=== PATIENT | female | born 1970 | race Caucasian/White ===

== ENCOUNTER 2020-08-15 21:30 | Inpatient (IN) | payer BC, MEDICARE ==
[~2020-08-15] VITALS: Ht 154.9 cm; Wt 66.1 kg
[~2020-08-15 21:30] MED LIST: ALBU8.5H6 INH; BYSTOLIC20 MG PO; HYDR-2769 PO; PREG-9 PO; ZOLP10TA PO
--- NOTE | 2020-08-15 21:30 | NUR ---
Admit from [facility] ER via EMS to [facility] room 256. A/O x 4 on arrival to floor. Talkative. Persistent Cough. O2Sat low 80% on 5L NC. Placed on Bi-Pap. 01/15, rate 12, 50% FiO2. Orientated to room and call light. Reviewed POC to include BiPap and Pending COVID testing. Verbalized understanding. Resting in bed. Playing games on cell phone. Tolerating BiPap at this time. Call light at hand.
[2020-08-15 21:45] VITALS: BP 109/57
[2020-08-15] MEDS ORDERED: OXYC1TAB22 PO (22:40)
[2020-08-15] MEDS ORDERED: VENTOLIN HFA18 GM INH (22:41)
[2020-08-15] MEDS ORDERED: VENL75CA6 PO (22:42)
[2020-08-15] MEDS ORDERED: GABA300C18 PO (22:43)
[2020-08-15] MEDS ORDERED: ASPI-630 PO (22:43)
[2020-08-15] MEDS ORDERED: ONDA-84 PO (22:44)
[2020-08-15] MEDS ORDERED: AMLO2.5T5 PO (22:45)
[2020-08-15] MEDS ORDERED: PREG-9 PO (22:45)
[2020-08-15] MEDS ORDERED: MAGNESIUM CITRATE 296 ML SOLUTION. PO PRN (22:45)
[2020-08-15] MEDS ORDERED: OMEP40CA7 PO (22:46)
[2020-08-15] MEDS ORDERED: [UNRECOGNIZED DRUG - OTHER] PO (22:49)
[2020-08-15] MEDS ORDERED: SPIR25TA5 PO (22:49)
[2020-08-15] MEDS ORDERED: ZINC50TA39 PO (22:50)
[2020-08-15] MEDS ORDERED: MAGN296S68 PO (22:51)
[2020-08-15] MEDS ORDERED: FERR-36 PO (22:52)
[2020-08-15] MEDS ORDERED: ATOR80TA72 PO (22:52)
[2020-08-15] MEDS ORDERED: VITAMIN D PO (22:54)
[2020-08-15] MEDS ORDERED: B12 PO (22:55)
[2020-08-15] MEDS ORDERED: ALBUTEROL SULFATE 2.5 MG/3 ML NEBU. NEB PRN (23:15)
[2020-08-15] MEDS: PREGABALIN 75 MG CAPSULE PO SCH (23:20)
[2020-08-15] MEDS: GABAPENTIN 300 MG CAPSULE. PO SCH (23:20)
[2020-08-15] MEDS: ONDANSETRON ODT 4 MG TAB.RAPDIS. PO PRN (23:21)
[2020-08-15] MEDS: oxyCODONE/APAP 10/325 1 TAB TABLET PO PRN (23:21)
[2020-08-15] MEDS: ATORVASTATIN CALCIUM 40 MG TABLET. PO SCH (23:45)
[2020-08-16] VITALS (17 sets, daily range): BP systolic 91–120; BP diastolic 51–78
[2020-08-16 01:07] LABS: BASE EXCESS COOX -2 mmol/L (-3-3); HCO3 COOX 24 mmol/L (21-28); PCO2 COOX 48 mmHg (35-46); PO2 COOX 69 mmHg (75-108); SAT O2 COOX 92 % (92-99)
[2020-08-16 01:09] LABS: METHEMOGLOBIN 0.3 % (0.0-1.9)
[2020-08-16] MEDS: BENZONATATE 100 MG CAPSULE. PO PRN ×3 (01:37→11:00)
--- NOTE | 2020-08-16 08:15 | NUR ---
ASSESSMENT COMPLETED AT THIS TIME, PATIENT ALERT AND VERBALLY RESPONSIVE, VERY TALKATIVE WITH C/O MILD HEADACHE, PATIENTS VITALS STABLE EXCEPT B/P 90S/60S AND 02 SATS DROP TO HIGH 80S DISPITE NON REBREATHER ON AT 15 LITERS, BI PAP REMOVED PER PATIENT REQUEST, PATIENT STATES "IT'S MAKING ME FEEL CLOSED IN". PATIENT SITTING AT THE BEDSIDE AT THIS TIME AND ENCOURAGED PER THIS CRIMINAL INVESTIGATOR CUSTOMS TO SPEAK ONLY WHEN NECESSARY TO CONSERVE HER ENERGY FOR BREATHING, PATIENT INFORMED THIS CRIMINAL INVESTIGATOR CUSTOMS THAT SHE NEEDED TO CONTINUE TO TALK AND THAT'S THE ONLY WAY TO LET ME KNOW WHAT'S WRONG WITH HER. DR. BANDA ENTERS THE ROOM AT THIS TIME AND BEGINS TO SPEAK WITH THE PATIENT.
[2020-08-16] MEDS: VENLAFAXINE XR 37.5 MG CAP.ER.24H. PO SCH (09:11)
[2020-08-16] MEDS: ZINC SULFATE 220 MG CAPSULE. PO SCH (09:12)
[2020-08-16] MEDS: FERROUS SULFATE 325 MG TABLET. PO SCH (09:12)
[2020-08-16] MEDS: PREGABALIN 75 MG CAPSULE PO SCH ×2 (09:12→21:41)
[2020-08-16] MEDS: SPIRONOLACTONE 25 MG TABLET PO SCH (09:12)
[2020-08-16] MEDS: GABAPENTIN 300 MG CAPSULE. PO SCH ×2 (09:12→21:41)
[2020-08-16] MEDS: PANTOPRAZOLE 40 MG TABLET.DR. PO SCH (09:12)
[2020-08-16] MEDS: ONDANSETRON ODT 4 MG TAB.RAPDIS. PO PRN (09:17)
[2020-08-16] MEDS: oxyCODONE/APAP 10/325 1 TAB TABLET PO PRN (09:18)
--- NOTE | 2020-08-16 09:39 | PN ---
DATE: 08/16/2020 SUBJECTIVE: The patient is resting, slightly propped up in bed, continued to complain of cough, shortness of breath, although her chest tightness and wheezing is much less. She was treated with IV ceftriaxone and Zithromax as well as steroids and was on 100% nonrebreather mask, maintaining her oxygen saturation around 90%. PHYSICAL EXAMINATION: GENERAL: When I examined her this morning, she was pale, but not jaundiced, cyanosed or thyromegaly. No jugular venous distention. No lower limb edema. VITAL SIGNS: Her heart rate was 112, blood pressure was 91/56, temperature was 97, respiratory rate was 24 and oxygen saturation was 90% on 15 liters of oxygen by nonrebreather mask. HEAD, EYES, EARS, NOSE, AND THROAT: Normocephalic, atraumatic. NECK: Supple. HEART: Showed normal first and second heart sounds. No gallop, rub or murmur. CHEST: Clear to auscultation. No rhonchi. She has crepitation. ABDOMEN: Soft, nontender. NEUROLOGIC: She is grossly intact. LABORATORY DATA: Her blood gases this morning showed a pH of 7.32, pO2 of 48, pCO2 of 69, bicarbonate was 24 and oxygen saturation was 91% on FiO2 of 50%. ASSESSMENT: In summary, this is a 49-year-old female patient who was admitted with acute on chronic hypoxic respiratory failure, probably community-acquired pneumonia on top of chronic pulmonary fibrosis, probably radiation induced. She has also chemotherapy-induced congestive heart failure. Other medical problems include coronary artery disease, status post myocardial infarction, fibromyalgia, osteoporosis and chronic obstructive pulmonary disease, although she has never smoked herself. PLAN: My plan is to continue with IV antibiotics, steroids and inhalers. I have consulted the resin coater as well as the bucket hooker to assist with her management. LUX DR: Giuseppe TID: [id number]
[2020-08-16] MEDS ORDERED: methylPREDNISolone SOD SUCC PF 40 MG/ML VIAL. IV SCH ×2 (09:45→14:00)
--- NOTE | 2020-08-16 10:20 | NUR ---
PATIENT LEAVES THE UNIT PER W/C AND ACCOMPANIED BY THIS BOND ANALYST EN ROUTE TO THE ICU ROOM 103, PATIENT MORE CALM AT THIS TIME AEB RESPIRATIONS EVEN, 02 SATS 91 AT THIS TIME AND PATIENT INFORMS THIS BOND ANALYST THAT THE PAIN MEDS THAT I GAVE HER ARE STARTING TO WORK. REPORT CALLED TO NURSE IN ICE, QUESTIONS AND CONCERNS ANSWERED, ALL PERSONAL BELONGINGS SENT WITH PATIENT INCLUDING PURSE, CELL PHONE, CELL PHONE [employer] AND BAGS OF PERSONAL ITEMS.
[2020-08-16] MEDS: ASPIRIN CHEWABLE 81 MG TABLET. PO SCH (11:00)
[2020-08-16] MEDS ORDERED: FUROSEMIDE 20 MG/2 ML VIAL. IVP ONE (11:00)
[2020-08-16] MEDS: AZITHROMYCIN 250 MG TABLET. PO SCH (11:00)
--- NOTE | 2020-08-16 11:02 | PDOC2 ---
ANSELMO HAWKINS AUTHORS MOTIVATIONAL 08/16/20 1102: CARDIAC CONSULT DATE OF CONSULT Date of Consult DATE: 08/16/20 TIME: 12:01 REASON FOR CONSULT Reason for Consult: Chemo induced CHF REFERRING PHYSICIAN Referring Physician: Dr. Parada SOURCE Source: Chart review HISTORY OF PRESENT ILLNESS HISTORY OF PRESENT ILLNESS This is a 49 yo female who presented to [facility] secondary to progressive shortness of breath and acute hypoxic respiratory failure. Patient unable to provide HPI as she is on mild sedation due to increased agitation this morning. Per chart review, patient experienced wheezing and chest tightness. No reports of dizziness, diaphoresis, or nausea/vomiting. PAST MEDICAL HISTORY Cardiovascular: CHF Pulmonary: Other (ARDS) CENTRAL NERVOUS SYSTEM: Periperal neuropathy GI: GERD Heme/Onc: Anemia NOS, Cancer (breast s/p stem cell transplant) Psych: Anxiety, Depression PAST SURGICAL HISTORY Past Surgical History: Other (left mastectomy ) FAMILY HISTORY Family History: Family History Unknown SOCIAL HISTORY Smoke: No ALCOHOL: none Drugs: None CURRENT MEDICATIONS CURRENT MEDICATIONS Current Medications Medications (Trade) Dose Ordered Sig/Dilma Route PRN Reason Start Time Stop Time Status Last Admin Dose Admin Ferrous Sulfate (Feosol) 325 mg DAILY PO 08/16/20 09:00 08/16/20 09:12 Gabapentin (Neurontin) 300 mg BID PO 08/15/20 23:30 08/16/20 09:12 Oxycodone/ Acetaminophen (Percocet 10/325) 2 tab PRN Q6HRS PRN PO SEVERE PAIN 7-10 08/15/20 22:45 08/16/20 09:18 Pregabalin (Lyrica) 75 mg BID PO 08/16/20 00:00 08/16/20 09:12 Spironolactone (Aldactone) 25 mg DAILY PO 08/16/20 09:00 08/16/20 09:12 Albuterol Sulfate (Ventolin Neb Soln) 2.5 mg PRN Q4HRS PRN NEB SHORTNESS OF BREATH 08/15/20 23:15 08/16/20 08:08 Atorvastatin Calcium (Lipitor) 80 mg QHS PO 08/16/20 00:00 08/15/20 23:45 Pantoprazole Sodium (Protonix) 40 mg DAILYAC PO 08/16/20 07:30 08/16/20 09:12 Ondansetron HCl (Zofran Odt) 8 mg PRN Q8HRS PRN PO NAUSEA/VOMITING 08/15/20 23:15 08/16/20 09:17 Venlafaxine HCl (Effexor Xr) 75 mg DAILY PO 08/16/20 09:00 08/16/20 09:11 Zinc Sulfate (Orazinc) 220 mg DAILY PO 08/16/20 09:00 08/16/20 09:12 Benzonatate (Tessalon Perle) 100 mg PRN TID PRN PO COUGH 08/16/20 00:15 08/16/20 06:08 ALLERGIES ALLERGIES: Coded Allergies: Penicillins (Verified Allergy, Severe, Swelling, 08/16/20) Can tolerate meropenem and ceftaroline erythromycin base (Verified Allergy, Severe, Swelling, 08/16/20) Has tolerated azithromycin ibuprofen (Verified Allergy, Intermediate, Nausea and Vomiting, 08/04/13) vancomycin (Verified Allergy, Intermediate, Rash, 08/04/13) Red klaudia syndrome ROS Review of System 14 point ROS conducted with pertinent positives noted above in hPI PHYSICAL EXAM General: No acute distress, Other (sleeping ) Lungs: Other (coarse throughout ) Heart: Regular rate (SR. distant heart tones ) Abdomen: Soft Extremities: No edema, Normal pulses Skin: No significant lesion Neuro: Other Psych/Mental Status: Other (mild sedation) MUSCULOSKELETAL: No deformity VITALS/I&O VITALS/I&O: Vital Signs Date Time Temp Pulse Resp B/P (MAP) Pulse Ox O2 Delivery O2 Flow Rate FiO2 08/16/20 09:18 21 90 NonRebreather Mask 08/16/20 09:00 112 91/56 08/16/20 08:09 15.0 08/16/20 07:00 97.0 97.0 I & O 08/15/20 08/15/20 08/16/20 15:00 23:00 07:00 Intake Total 500 ml Output Total 150 ml Balance 350 ml LABS Lab: Laboratory Tests Test 08/16/20 00:45 O2 Saturation 92 % (92-99) Arterial Blood pH 7.32 (7.35-7.45) L Arterial Blood pCO2 at Patient Temp 48 mmHg (35-46) H Arterial Blood pO2 at Patient Temp 69 mmHg (75-108) L Arterial Blood HCO3 24 mmol/L (21-28) Arterial Blood Base Excess -2 mmol/L (-3-3) Emmanuel Test Na Oxyhemoglobin 91.0 % Methemoglobin 0.3 % (0.0-1.9) Carbon Monoxide, Quantitative 0.2 % (0.0-1.9) FiO2 50 ASSESSMENT/PLAN ASSESSMENT/PLAN 1. Acute on chronic respiratory with ARDS, possible PNA, and mild acute on chronic probable diastolic CHF 2. Leukocytosis, low-grade fevers. 3. H/o breast CA s/p left mastectomy and chemo/radiation therapy. s/p stem cell transplant 4. PUI; COVID negative at [facility] 5. Anxiety; requiring mild sedation Recommendations Mild diuresis Echo to assess LV systolic function Ongoing lung optimization BiPAP PRN Supportive care CLARA FATIMA MD 08/16/201912: CARDIAC CONSULT ASSESSMENT/PLAN ASSESSMENT/PLAN Patient seen and examined. Agree with ZIG ZAG SPRING MACHINE OPERATOR's assessment and plan. Acute resp failure probably secondary to combination of acute on chr diast HF and pneumonia. Covid negative Continue diuresis and check 2D echo to assess LVF Ischemic evaluation could be considered as outpatient Thank you for your consultation ANSELMO HAWKINS APRN Aug 16, 2020 11:02 CLARA FATIMA MD Aug 16, 2020 19:13
[2020-08-16] MEDS: cefTRIAXone IV Push 1 GM VIAL. IVP SCH (11:07)
[2020-08-16] MEDS ORDERED: DEXMEDETOMIDINE 400 MCG in IV NORMAL SALINE 100ML 96 ML IV PRN (11:30)
[2020-08-16] MEDS ORDERED: IV NORMAL SALINE 500ML BAG 500 ML IV PRN ×2 (11:30)
[2020-08-16] MEDS ORDERED: ATROPINE 0.5 MG/5 ML DISP.SYRINGE. IV PRN ×2 (11:30)
--- NOTE | 2020-08-16 11:41 | CONS ---
DATE OF CONSULTATION: 08/16/2020 PULMONARY CONSULTATION ATTENDING PHYSICIAN: Wilbert Parada MD REASON FOR CONSULTATION: Respiratory failure, severe hypoxia, ARDS. HISTORY OF PRESENT ILLNESS: The patient is a 49-year-old female who has past medical history of breast cancer, status post chemotherapy and radiation long time ago. She has a history of stem cell transplant. The patient has a history of acute lung injury and acute respiratory distress syndrome when she was last seen by our service in 2013. The patient at that time did respond to steroids and was subsequently discharged home. We have not followed her since then. The patient states that she remains on oxygen at 2 liters. She is a lifetime nonsmoker. The patient has not received any chemo for several years. She was brought into the hospital with progressive dyspnea and acute hypoxic respiratory failure. Her oxygen requirement has significantly increased. Now, she is requiring 100% nonrebreather mask. She is not in any imminent respiratory distress. She has a cough which is nonproductive. No fever, no chills, no chest pains. No nausea, vomiting, or diarrhea. She relatively keep herself isolated. She has no environmental exposures. She is all updated on her COVID vaccination in April. CT chest was performed along with chest x-ray and I have reviewed that in detail. The patient has extensive bilateral alveolar and interstitial infiltrates without any pleural effusion. There was no evidence of pulmonary embolism. I have been asked to see her for further evaluation and we are transferring the patient to the ICU. PAST MEDICAL HISTORY: Significant for history of breast cancer, status post stem cell transplant. History of immune suppression with a past history of chemo and radiation. History of prior chest tube wound. History of acute lung injury and ARDS in 2013. PAST SURGICAL HISTORY: None recent. ALLERGIES: ERYTHROMYCIN, PENICILLIN, IBUPROFEN, AND VANCOMYCIN. FAMILY HISTORY: Noncontributory. SOCIAL HISTORY: Nonsmoker. REVIEW OF SYSTEMS: A 12-point system obtained. Pertinent positives discussed in my presence illness, otherwise noncontributory. All systems that were negative were reviewed as well. PHYSICAL EXAMINATION: VITAL SIGNS: Reviewed. She is on 100% nonrebreather mask. His saturation in the high 90s. NECK: Supple. LUNGS: With diminished breath sounds posteriorly. CARDIOVASCULAR: With a regular rate. ABDOMEN: Soft, nontender. EXTREMITIES: With no pitting edema. LABORATORY DATA: All reviewed. Her CT chest findings as well as chest x-ray findings are discussed in my history of present illness. IMPRESSION: 1. Acute hypoxic respiratory failure secondary to ARDS and acute lung injury with unknown etiology. She has not received any chemo recently. The possibility of lymphangitic spread seems unlikely. The possibility of interstitial pneumonitis vs acute ILD would also be a consideration. fully vaccinated with COVID, TEST NEGATIVE. 2. No significant history of tobacco use. 3. History of breast cancer, status post stem cell transplant many years ago. 4. Status post chemo and radiation many years ago. No recent chemo. RECOMMENDATIONS: 1. We will continue present oxygen at 100% FIO2. We will transfer the patient to the ICU and use Vapotherm if needed. 2. High dose steroids. 3. Trial of Lasix. 4. Obtain echocardiogram. 5. We will obtain old records. 6. Discussed with Dr. Parada in detail. 7. Continue empiric antibiotics for now. 8. Further recommendations to follow. The patient is a full code. Discussed with RN and Dr. Parada. cct [address]: [place] TID: [id number] MTDD
[2020-08-16] MEDS ORDERED: ZIPRASIDONE IM 20 MG VIAL. IM ONE (12:00)
--- NOTE | 2020-08-16 12:00 | NUR ---
Patient transferred from CVC to ICU via . Patient was settled in room, monitor and oxygen supply applied. She was noted to be tachypneic and labored breathing on NRB mask with increase anxiety, restless, and irritable. She verbalized that she would like to "leave because everyone seems to be telling me my oxygen level is dropping and when it's my time then it's my time". Patient took off oxygen supply multiple times indication it is hard to breath with the mask. Patient transitioned to venti mask which she continued to take off too. Patient later disconnected self from monitor and oxygen supply to use toilet without assistance and against staff recommendation to remain in bed. She was helped back into bed. Her SPO2 was noted to be reading in the 50s and labored breathing. Precedex and Geodon given per MD order. Patient currently on Vapotherm 40L at 100% FIO2 sleeping.
--- NOTE | 2020-08-16 12:00 | HP ---
ADMIT DATE: 08/15/2020 HISTORY OF PRESENT ILLNESS: The patient is a 49-year-old female patient who presented to the Emergency Room of [facility] with a complaint of cough, shortness of breath that has been going on for the last 3-4 days. The cough is mostly dry. She does have some chest pain when she takes a deep breath that seems to be pleuritic in nature, mostly on the left side. She is normally on 2 liters of oxygen at home, but she has increased her oxygen to 5 liters and despite this, she continued to have shortness of breath and chest tightness and wheezing. She was evaluated in the Emergency Room of [facility] and has had lab work and imaging studies. Her lab work showed she has leukocytosis with a white cell count of 14,000. Her blood gases showed a pH of 7.30, pCO2 of 48, pO2 of 74, bicarbonate 24 and oxygen saturation was 93% on FiO2 of 36%. Her D-dimer was slightly high at 1.02. Her chemistry showed that her beta natriuretic peptide was high at 1628, otherwise the chemistry is unremarkable. Urinalysis was also unremarkable. Given the elevated D-dimer, she underwent CT angio of the chest, which showed there is no evidence of pulmonary emboli identified within the main lobar or segmental pulmonary arteries; however, she has extensive patchy bilateral airspace disease, may represent infectious or inflammatory process versus edema. The patient was treated with IV antibiotic in the form of ceftriaxone as well as azithromycin, was given also breathing treatment and steroids and given that her requirement of oxygen has increased and was requiring BiPAP machine, a decision was made to transfer her to [facility] for further evaluation and treatment. PAST MEDICAL HISTORY: Significant for breast cancer diagnosed about 22 years ago. She underwent left mastectomy with recurrence twice treated with high dose radiation and chemotherapy. She was diagnosed also with congestive heart failure that was chemotherapy-induced. She apparently has had hyperlipidemia, coronary artery disease status post myocardial infarction in 2019. She was treated also for necrotizing fasciitis involving her left hand and as she was stage 4, breast cancer was treated with stem cell transplant. 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 PAST SURGICAL HISTORY: Significant for left side mastectomy with a recurrence that was treated surgically as well as with chemotherapy and radiation, tonsillectomy, multiple cysts removed from her neck and left foot. ALLERGIES: SHE IS ALLERGIC TO PENICILLIN, VANCOMYCIN, ERYTHROMYCIN, CODEINE, AND IBUPROFEN. MEDICATIONS: She is currently on the following medications: She is on albuterol sulfate 2 puffs every 4 hours, ferrous sulfate 325 mg once a day, atorvastatin calcium 80 mg at bedtime, amlodipine 2.5 mg once a day, spironolactone 25 mg daily, aspirin 81 mg once a day, oxycodone/APAP 10/325 two tablets every 6 hours, gabapentin 300 mg twice a day, pregabalin 75 mg twice a day. She is on venlafaxine 75 mg daily, zinc sulfate 50 mg once a day, magnesium citrate 1 bottle daily. She is also on ondansetron 4 mg every 8 hours, omeprazole 40 mg daily. FAMILY HISTORY: She has 1 sister older and has heart disease. Her brother is younger and has severe bronchial asthma. Her father at age of 33 because of motor vehicle accident and mother at age of 54 because of metastatic cancer, the primary of which is not known. SOCIAL HISTORY: She is , has 2 sons. She never smoked, does not drink alcohol or recreational drugs. She is on disability. REVIEW OF SYSTEMS: The patient denied any blurring of vision, cataracts, glaucoma or macular degeneration. Denied any earache, tinnitus or sensory deafness. Denied nosebleed, stuffy nose or postnasal drip. Denied any sore throat, sore tongue, toothache, hoarseness of voice or difficulty swallowing. Denied any nausea, vomiting, diarrhea or constipation. Denied any dysuria, frequency, hematuria. Did complain of a cough which is mostly dry, shortness of breath as well as orthopnea, and paroxysmal nocturnal dyspnea. PHYSICAL EXAMINATION: GENERAL: On arrival to the Emergency Room, the patient was pale, somewhat tachypneic, but not cyanosed. No lymphadenopathy, no thyromegaly, no jugular venous distention. No lower limb edema. VITAL SIGNS: Her heart rate was 118, blood pressure was 119/83, temperature was 99.6, respiratory rate was 25 and oxygen saturation was 78% on room air, has risen to 91% on 3 liters of oxygen. HEAD, EYES, EARS, NOSE, AND THROAT: Normocephalic, atraumatic. NECK: Supple. HEART: Normal first and second heart sounds, no gallop, rub or murmur. CHEST: Shows central trachea, equal bilateral chest expansion, air entry has extensive bilateral scattered rhonchi as well as crepitation. ABDOMEN: Slightly distended, soft, nontender, no guarding or rigidity. No organomegaly. All hernial orifices are intact. Bowel sounds normal. NEUROLOGIC: She is awake, alert, responding appropriately. All cranial nerves are intact. She moves extremities without difficulty. LABORATORY DATA: Her lab work on arrival to the Emergency Room showed a white cell count 14,300, hemoglobin 11, hematocrit 30, MCV 112, and a platelet count of 207,000 with normal manual differential. Her blood gases showed a pH of 7.30, pCO2 of 48, pO2 of 74, bicarbonate 24 and oxygen saturation was 93% on FiO2 of 56%. Her D-dimer was 1.02. Her chemistry showed a serum sodium 144, potassium 3.5, chloride 107, bicarbonate 25, anion gap of 12, BUN 7, creatinine 0.8. Estimated GFR was 77 mL per minute. Her glucose was 95. Lactic acid was only 1.3. Her calcium was 8.1. Total bilirubin and ALT were normal. AST and alkaline phosphatase slightly elevated. Her C-reactive protein was 270 mg per liter. Beta natriuretic peptide was 1628. Total protein was 6.6, albumin was 2.9. Urinalysis showed the urine was yellow, clear with a pH of 5.5, specific gravity of 1.010. The urine was negative for protein, glucose, ketones. There was moderate amount of blood, negative for nitrite and leukocyte esterase. There are few rbc's, no wbc's and no bacteria. Her chest x-ray showed the patient has diffuse patchy airspace disease/edema in the bilateral lungs, suspicious for atypical or viral pneumonia, correlate clinically. Given her elevated D-dimer and hypoxia, she underwent a CT angio of the chest, which showed that no pulmonary embolus identified within the main lobar or segmental pulmonary arteries. She has extensive patchy bilateral airspace disease that may represent infectious inflammatory process versus edema. ASSESSMENT AND PLAN: The patient was treated with IV steroids and inhalers, started on IV antibiotic in the form of IV ceftriaxone and azithromycin. Apparently, her oxygen requirement has worsened while she is in the Emergency Room and she was started on BiPAP machine and eventually, she was transferred to [facility] to continue with steroids, antibiotics and BiPAP machine, consult the template reproduction technician and perhaps the patient relations manager also. CODI/FROY/REVA DR: Giuseppe TID: [id number]
[2020-08-16] MEDS: DEXMEDETOMIDINE 400 MCG in IV NORMAL SALINE 100ML 96 ML IV PRN ×3 (12:20→18:38)
[2020-08-16] MEDS: IPRATRPIUM/ALBUTEROL 0.5/2.5MG 3 ML NEBU. NEB SCH ×3 (12:27→20:00)
--- NOTE | 2020-08-16 12:55 | NUR ---
Patient refusing Bipap, despite low oxygen saturations. She does not even want it in the room on Standby.
[2020-08-16] MEDS: methylPREDNISolone SOD SUCC PF 40 MG/ML VIAL. IV SCH ×2 (15:15→21:42)
--- NOTE | 2020-08-16 15:21 | NUR ---
SS following for discharge planning. SS reviewed pt chart and discussed with pt RN. Pt is from home and is currently on Vapotherm. Pt on Precedex and was given Geodon today. Pt on IV Rocephin and PO Azithromycin. Pt on IV Steroids. Not stable. SS will continue to follow for discharge planning.
[2020-08-16] MEDS: STERILE WATER for RESP 1,000 ML BAG. INH PRN (18:19)
[2020-08-16] MEDS ORDERED: HALOPERIDOL LACTATE 5 MG/ML VIAL. IVP PRN (19:30)
--- NOTE | 2020-08-16 19:31 | CARD ---
MR#: [id number] Date of Study: 08/16/2020 Ordering Physician: EUGENE STAPLETON, Referring Physician: EUGENE STAPLETON, Tech: Abby Mgadasamara, [facility] APPROVED REPORT EXAM: Two-dimensional and M-mode echocardiogram with Doppler and color Doppler. Other Information Quality : AverageHR: 97bpm INDICATION Congestive Heart Failure 2D DIMENSIONS RVDd2.5 (2.9-3.5cm)Left Atrium(2D)2.8 (1.6-4.0cm) IVSd0.8 (0.7-1.1cm)Aortic Root(2D)2.9 (2.0-3.7cm) LVDd5.7 (3.9-5.9cm)LVOT Diameter2.0 (1.8-2.4cm) PWd0.8 (0.7-1.1cm)LVDs4.2 (2.5-4.0cm) FS (%) 26.1 %SV80.4 ml LVEF(%)50.6 (>50%) Aortic Valve AoV Peak Matthew.99.3cm/sAoV VTI20.7cm AO Peak GR.3.9mmHgLVOT VTI 14.15cm AO Mean GR.3mmHg Mitral Valve MV E Mtzdcxwt77.1cm/sMV DECEL KRQK989cm MV A Aervgvde92.0cm/sE/A Ratio2.4 TDI Lateral E' P. V9.27cm/sMedial E' P. V8.11cm/s E/Lateral E'9.6E/Medial E'11.0 Tricuspid Valve TR P. Xvgwsmme238zi/sRAP NQEVXIKB1qgXw TR Peak Gr.19kbVwKQPP09ubTj Pulmonary Vein S1 Naahjrjo80.7cm/sS2 Gafkapgb82.44cm/s D2 Hwtippno00.4cm/s LEFT VENTRICLE The Left Ventricle is mildly dilated. There is normal left ventricular wall thickness. The systolic f unction is moderately impaired. EF 40%. Setal motion consistant with conduction abnormality. There is moderate global hypokinesis. Tissue Doppler imaging reveals moderate left ventricular diastolic dysf unction. No left ventricle thrombus noted on this study. There is no ventricular septal defect visual ized. RIGHT VENTRICLE The right ventricle is mild to moderately dilated. There is normal right ventricular wall thickness. The right ventricular systolic function is normal. ATRIA The left atrium is mildly dilated. The right atrium is mildly dilated. The interatrial septum is inta ct with no evidence for an atrial septal defect or patent foramen ovale as noted on 2-D or Doppler im aging. AORTIC VALVE The aortic valve is thickened but opens well. Doppler and Color Flow revealed no significant aortic r egurgitation. There is no significant aortic valvular stenosis. Calculated aortic valve area is 2.12 cm2 with maximum pressure gradient of 6 mmHg and mean pressure gradient of 3 mmHg. MITRAL VALVE The mitral valve is normal in structure and function. There is no evidence of mitral valve prolapse. There is no mitral valve stenosis. Doppler and Color-flow revealed trace to mild mitral regurgitation . TRICUSPID VALVE The tricuspid valve is normal in structure and function. Doppler and Color Flow revealed mild to mode rate tricuspid regurgitation with an estimated PAP of 40 mmHg. There is no tricuspid valve stenosis. PULMONIC VALVE The pulmonic valve is not well visualized. Doppler and Color Flow revealed trace pulmonic valvular re gurgitation. There is no pulmonic valvular stenosis. GREAT VESSELS The aortic root is normal in size. The ascending aorta is normal in size. The IVC is normal in size a nd collapses >50% with inspiration. PERICARDIAL EFFUSION There is a small circumferential pericardial effusion. Critical Notification Critical Value: No <Conclusion> The systolic function is moderately impaired. EF 40%. Setal motion consistant with conduction abnormality. There is moderate global hypokinesis. The right ventricle is mild to moderately dilated. Doppler and Color Flow revealed mild to moderate tricuspid regurgitation with an estimated PAP of 40 mmHg. There is a small circumferential pericardial effusion. Signed by : Nolan Lu, Electronically Approved : 08/16/2020 19:31:08
[2020-08-16] MEDS: ATORVASTATIN CALCIUM 40 MG TABLET. PO SCH (21:42)
[2020-08-17] VITALS (24 sets, daily range): BP systolic 83–118; BP diastolic 52–74
[2020-08-17] MEDS: ONDANSETRON ODT 4 MG TAB.RAPDIS. PO PRN ×2 (03:18→20:13)
[2020-08-17] MEDS: BENZONATATE 100 MG CAPSULE. PO PRN ×2 (03:18→13:58)
[2020-08-17] MEDS: oxyCODONE/APAP 10/325 1 TAB TABLET PO PRN ×2 (03:23→13:58)
[2020-08-17] MEDS: DEXMEDETOMIDINE 400 MCG in IV NORMAL SALINE 100ML 96 ML IV PRN ×3 (03:24→18:10)
[2020-08-17] MEDS: methylPREDNISolone SOD SUCC PF 40 MG/ML VIAL. IV SCH ×3 (06:21→22:07)
[2020-08-17] MEDS: STERILE WATER for RESP 1,000 ML BAG. INH PRN (06:27)
--- NOTE | 2020-08-17 08:06 | PDOC ---
Infectious Disease Note Vital Sign Vital Signs Vital Signs Date Time Temp Pulse Resp B/P (MAP) Pulse Ox O2 Delivery O2 Flow Rate FiO2 08/17/20 07:37 97 VAPOTHERM 40.0 08/17/20 07:00 97.8 79 21 111/66 (81) 97.8 Labs Lab Laboratory Tests Test 08/16/20 16:20 Magnesium Level 2.1 mg/dL (1.8-2.4) Objective Assessment pt seen, consult dictated Plan Plan of Care / LANCE JOHNSTON MD Aug 17, 2020 08:06
[2020-08-17] MEDS: IPRATRPIUM/ALBUTEROL 0.5/2.5MG 3 ML NEBU. NEB SCH ×4 (08:20→20:11)
[2020-08-17 08:27] LABS: CALCIUM 8.8 mg/dL (8.5-10.1); CREATININE 0.7 mg/dL (0.6-1.0); GFR 89.7; POTASSIUM 4.2 mmol/L (3.5-5.1)
--- NOTE | 2020-08-17 08:34 | PDOC ---
BLANKA SILVAELIZABETHJaziel Negrete SCREW MACHINE TOOL SETTER 08/17/20 0834: CARDIO Progress Notes Date and Time Date of Service 08/17/2020 Time of Evaluation 0815 Subjective Subjective: No Chest Pain, No Palpitations, Other (still has some SOA) Vitals Vitals Vital Signs Date Time Temp Pulse Resp B/P (MAP) Pulse Ox O2 Delivery O2 Flow Rate FiO2 08/17/20 08:21 97 VAPOTHERM 40.0 08/17/20 07:00 97.8 79 21 111/66 (81) 97.8 Weight Weight [ ] Input and Output Intake and Output Intake and Output 08/17/20 07:00 Intake Total 420 ml Output Total 420 ml Balance 0 ml Intake Oral 320 ml IV Total 100 ml Output Urine Total 420 ml # Voids 2 Laboratory Labs Laboratory Tests Test 08/16/20 16:20 Magnesium Level 2.1 mg/dL (1.8-2.4) Physical Exam HEENT: Neck Supple W Full Motion Chest: Symmetric LUNGS: Other (diminished, upper wheeze) Heart: RRR (SR) Abdomen: Soft N/T Extremities: No Edema, No Calf Tenderness Neurology: alert, oriented, follow commands Assessment Assessment 1. Acute hypoxic respiratory failure with systolic CHF and ARDS with possible pneumonia presently on vapotherm, pulmonary following 2. Acute on chronic systolic CHF: improving 3. Presumed NICM: EF at 40% 4. Hx of breast CA with prior radiation and chemotherapy and left breast mastectomy 5. Anxiety Recommendations 1. Continue vapotherm, currently on precedex with associated restlessness. Monitor BP trend 2. Continue statin, ASA. Hold any BB with associated BP at low end. DC norvasc. Obtain BMP, continue aldactone. Lasix as warranted. PCXR today 3. Unclear for past ischemic workup will consider as outpt. Supportive care,. Justicifation of Admission Dx: Justifications for Admission: Justification of Admission Dx: Yes CLARA FATIMA MD 08/18/20 0934: CARDIO Progress Notes Assessment Assessment Patient seen and examined 08/17/20. Agree with MACHINE EGG WASHER's assessment and plan. Acute resp failure probably secondary to combination of acute on chr systolic HF and pneumonia. Covid negative 2D echo showed LVEF 40%. Plan ischemic evaluation as outpatient. Continue diuretics. Pulmonary team following. SIXTO SILVA SCREW MACHINE TOOL SETTER Aug 17, 2020 08:34 CLARA FATIMA MD Aug 18, 2020 09:34
[2020-08-17] MEDS: VENLAFAXINE XR 37.5 MG CAP.ER.24H. PO SCH (08:41)
[2020-08-17] MEDS: PREGABALIN 75 MG CAPSULE PO SCH ×2 (08:41→20:13)
[2020-08-17] MEDS: PANTOPRAZOLE 40 MG TABLET.DR. PO SCH (08:41)
[2020-08-17] MEDS: ASPIRIN CHEWABLE 81 MG TABLET. PO SCH (08:41)
[2020-08-17] MEDS: ZINC SULFATE 220 MG CAPSULE. PO SCH (08:41)
[2020-08-17] MEDS: GABAPENTIN 300 MG CAPSULE. PO SCH ×2 (08:42→20:12)
[2020-08-17] MEDS: AZITHROMYCIN 250 MG TABLET. PO SCH (08:42)
[2020-08-17] MEDS: FERROUS SULFATE 325 MG TABLET. PO SCH (08:42)
[2020-08-17] MEDS: SPIRONOLACTONE 25 MG TABLET PO SCH (08:44)
--- NOTE | 2020-08-17 08:55 | PN ---
DATE: 08/17/2020 SUBJECTIVE: The patient is resting, slightly propped up in bed comfortably. She is on Precedex, currently on Vapotherm, maintaining her oxygen saturation at 97% on 40 liters of oxygen and FiO2 of 40%. Nursing staff stated the patient has been extremely agitated yesterday, requiring Geodon and Precedex, although she had apparently eventually an uneventful night. OBJECTIVE: GENERAL: On examining her, she looked pale, but no jaundice, cyanosis or thyromegaly. No jugular venous distention. No limb edema. VITAL SIGNS: Her heart rate was 79, blood pressure is 111/66, temperature 97.8, respiratory rate 21, oxygen saturation was 96% on 40 liters of oxygen on FiO2 of 40% by Vapotherm. HEAD, EYES, EARS, NOSE, AND THROAT: Normocephalic, atraumatic. NECK: Supple. HEART: Normal first and second heart sounds, no gallop or murmur. CHEST: Shows central trachea, equal bilateral expansion, air entry, vesicular breath sounds. No crepitation or rhonchi. ABDOMEN: Slightly distended, soft, nontender. NEUROLOGIC: She was grossly intact. Her intake was 500, output was 150. LABORATORY DATA: Still pending at the time of this dictation. ASSESSMENT: 1. Acute on chronic hypoxic respiratory failure. 2. Community-acquired pneumonia. 3. Questionable she has an acute adult respiratory distress syndrome. 4. Radiation-induced lung injury. 5. Chemotherapy-induced congestive heart failure. 6. Coronary artery disease status post myocardial infarction. 7. Fibromyalgia. 8. Osteoporosis and chronic obstructive pulmonary disease. 9. Premature ovarian failure. PLAN: To continue with IV antibiotic. Continue with steroids and inhalers. I did consult the court collections officer, aeronautical products sales engineer as well as infectious disease specialist. CONSTANCE DR: Giuseppe TID: [id number]
--- NOTE | 2020-08-17 09:26 | CONS ---
DATE OF CONSULTATION: 08/17/2020 REQUESTING PHYSICIAN: Dr. Parada REASON FOR CONSULTATION: Bilateral pulmonary infiltrate. HISTORY OF PRESENT ILLNESS: This is a 49-year-old female who had undergone stem cell transplant for breast cancer 20 years or so ago and she has been in remission since then, presented to the [place] ER with cough and shortness of breath of about 2-3 days origin. The patient said she may probably have had low-grade fever. Denied any nausea, vomiting, diarrhea. Denies any headache, visual symptoms, chest pain, urinary symptoms or bowel symptoms. The patient then was transferred from there to here requiring significantly high oxygen and was found to have bilateral pulmonary infiltrate/ARDS. The patient is on Rocephin and azithromycin and again requiring significant oxygen support, on Vapotherm. PAST MEDICAL HISTORY: Positive for breast cancer status post mastectomy and a stem cell transplant about 20 or so years ago. She has not required anything after that. She did develop congestive heart failure, peripheral neuropathy, does have bipolar disorder and she has had history of MRSA in 2013. SOCIAL HISTORY: Negative for smoking, alcohol, illicit drug use. The patient denies vaping. Denies any sick contact. She says she basically isolates herself. No outdoor activity. No traveling. ALLERGIES: LISTED ALLERGIC TO PENICILLIN AND VANCOMYCIN, she says she has had allergic reaction of course years ago. CURRENT MEDICATIONS: Reviewed. REVIEW OF SYSTEMS: As per HPI. All other systems reviewed are negative. PHYSICAL EXAMINATION: GENERAL: Alert, oriented female, not in distress. VITAL SIGNS: Temperature 97.8, pulse 79, respirations 21, blood pressure 111/66. HEENT: Both pupils are round and reacting. No conjunctival lesion. No lesion in the mouth. NECK: Supple, no JVP, no lymphadenopathy. LUNGS: Clear. HEART: S1, S2 regular. ABDOMEN: Soft, nontender, no organomegaly. EXTREMITIES: No edema, cyanosis. SKIN: Unremarkable. NEUROLOGIC: The patient is alert, awake, and appropriate. No focal neurologic deficit. LABORATORY AND DIAGNOSTIC DATA: White count was 14,000 at [place] before transfer, has not been done here yet. Blood culture done there is unremarkable. CT of the chest done which showed ARDS. IMPRESSION: 1. Hypoxic respiratory failure with acute respiratory distress syndrome, etiology of acute respiratory distress syndrome is unclear. Her COVID PCR was negative there. 2. Leukocytosis. 3. History of breast cancer, status post stem cell transplant 20+ years ago. 4. Congestive heart failure. RECOMMENDATIONS: Continue Rocephin and azithromycin for the time being. We will try to inquire if upper respiratory viral panel can be done. We also will get a procalcitonin level and continue to follow. Thank you very much, Dr. Parada for giving me opportunity to participate in this patient's care. CHEYENNE/JOANNE DR: Tiffanie TID: [id number]
[2020-08-17] MEDS: cefTRIAXone IV Push 1 GM VIAL. IVP SCH (10:17)
--- NOTE | 2020-08-17 10:52 | RAD ---
XR CHEST 1V History: Reason: chf / Spl. Instructions: / History: Comparison: August 12, 2013. August 15, 2020 Findings: Diffuse interstitial and alveolar opacities. Small left pleural effusion. Enlarged cardiac size. No p neumothorax. Impression: 1. Diffuse interstitial and alveolar opacities, increased compared to prior. 2. Small left pleural effusion. 3. Enlarged cardiac size, unchanged. Electronically signed by: Quintin Bowden DO (08/17/2020 10:50 AM) [id number]
[2020-08-17] MEDS ORDERED: FUROSEMIDE 40 MG/4 ML VIAL. IVP ONE ×2 (11:15→11:45)
--- NOTE | 2020-08-17 11:34 | PDOC ---
PULMONARY PROGRESS NOTES DATE: 08/17/20 TIME: 11:32 Subjective Patient currently on Vapotherm at 40 L flow and 90% FiO2. Feels better and denies any increased shortness of breath. Vitals Vital Signs Date Time Temp Pulse Resp B/P (MAP) Pulse Ox O2 Delivery O2 Flow Rate FiO2 08/17/20 11:22 82 22 109/67 (81) 100 vapotherm 40.0 08/17/20 07:00 97.8 97.8 General: Alert, Oriented X4 Lungs: Clear (Anteriorly) Cardiovascular: S1, S2, Other Abdomen: Soft, Non-tender Extremities: No Edema Skin: Warm Labs Laboratory Tests Test 08/16/20 00:45 08/16/20 16:20 08/17/20 08:10 O2 Saturation 92 % (92-99) Arterial Blood pH 7.32 (7.35-7.45) Arterial Blood pCO2 at Patient Temp 48 mmHg (35-46) Arterial Blood pO2 at Patient Temp 69 mmHg (75-108) Arterial Blood HCO3 24 mmol/L (21-28) Arterial Blood Base Excess -2 mmol/L (-3-3) Emmanuel Test Na Oxyhemoglobin 91.0 % Methemoglobin 0.3 % (0.0-1.9) Carbon Monoxide, Quantitative 0.2 % (0.0-1.9) FiO2 50 Magnesium Level 2.1 mg/dL (1.8-2.4) Sodium Level 145 mmol/L (136-145) Potassium Level 4.2 mmol/L (3.5-5.1) Chloride Level 108 mmol/L (98-107) Carbon Dioxide Level 25 mmol/L (21-32) Anion Gap 12 (6-14) Blood Urea Nitrogen 22 mg/dL (7-20) Creatinine 0.7 mg/dL (0.6-1.0) Estimated GFR (Cockcroft-Gault) 89.7 Glucose Level 120 mg/dL (70-99) Calcium Level 8.8 mg/dL (8.5-10.1) Laboratory Tests Test 08/16/20 16:20 08/17/20 08:10 Magnesium Level 2.1 mg/dL (1.8-2.4) Sodium Level 145 mmol/L (136-145) Potassium Level 4.2 mmol/L (3.5-5.1) Chloride Level 108 mmol/L (98-107) Carbon Dioxide Level 25 mmol/L (21-32) Anion Gap 12 (6-14) Blood Urea Nitrogen 22 mg/dL (7-20) Creatinine 0.7 mg/dL (0.6-1.0) Estimated GFR (Cockcroft-Gault) 89.7 Glucose Level 120 mg/dL (70-99) Calcium Level 8.8 mg/dL (8.5-10.1) Medications Active Scripts Medications Dose Route/Sig Max Daily Dose Days Date Category Dose Instructions [B12 ] 5,000 Mcg PO DAILY 08/15/20 Reported [vitamin D3-50] 50,000 Units PO WEEKLY 08/15/20 Reported Vitamin D3-50 50,000 units deric on Mondays Iron (Ferrous Sulfate) 325 Mg Tablet 325 Mg PO DAILY 08/15/20 Reported Atorvastatin Calcium 80 Mg Tablet 80 Mg PO QHS 08/15/20 Reported Magnesium Citrate 296 Ml Solution 296 Ml PO DAILY PRN 08/15/20 Reported Zinc 50 Mg Tablet 50 Mg PO DAILY 08/15/20 Reported Spironolactone 25 Mg Tablet 25 Mg PO DAILY 08/15/20 Reported [probiotic daily] 2 Tab PO DAILY 08/15/20 Reported 2 Gummies daily Omeprazole 40 Mg Capsule.dr 40 Mg PO DAILY 08/15/20 Reported Amlodipine Besylate 2.5 Mg Tablet 2.5 Mg PO DAILY 08/15/20 Reported Lyrica (Pregabalin) 75 Mg Capsule 75 Mg PO BID 08/15/20 Reported Ondansetron Hcl 4 Mg Tablet 8 Mg PO Q8HRS PRN 08/15/20 Reported Aspirin 81 Mg Tab.chew 81 Mg PO DAILY 08/15/20 Reported Gabapentin (Gabapentin) 300 Mg Capsule 300 Mg PO BID 08/15/20 Reported Venlafaxine Hcl Er (Venlafaxine Hcl) 75 Mg Cap.er.24h 75 Mg PO DAILY 08/15/20 Reported Ventolin Hfa Inhaler (Albuterol Sulfate) 18 Gm Hfa.aer.ad 2 Puff INH Q4HRS PRN 08/15/20 Reported Percocet 10-325 Mg Tablet (Oxycodone/Acetaminophen) 1 Each Tablet 2 Tab PO PRN Q6HRS PRN 08/15/20 Reported Impression . 1. Acute hypoxic respiratory failure secondary to ARDS and acute lung injury with unknown etiology. She has not received any chemo recently. The possibility of lymphangitic spread seems unlikely. The possibility of interstitial pneumonitis vs acute ILD would also be a consideration. fully vaccinated with COVID, TEST NEGATIVE. 2. No significant history of tobacco use. 3. History of breast cancer, status post stem cell transplant many years ago. 4. Status post chemo and radiation many years ago. No recent chemo. Plan . RECOMMENDATIONS: 1. Continue with present Vapotherm at 40 L flow. Currently on 90% FiO2. Oxygen saturations 100%. We will gradually wean FiO2 and keep saturations 92 and above. 2. High dose steroids. 3. Trial of Lasix.prn 4. Obtain echocardiogram. 5. We will obtain old records. 6. Discussed with Dr. Parada in detail. 7. Continue empiric antibiotics for now. Infectious diseases following. 8. Oral nutrition. 9. Follow-up chest x-ray in 3 to 4 days. EUGENE STAPLETON MD Aug 17, 2020 11:34
--- NOTE | 2020-08-17 13:58 | NUR ---
SS following up with discharge planning. SS reviewed pt chart and discussed with pt RN. Pt is currently on Vapotherm. Pt on Precedex. Pt on IV Rocephin and IV Steroids. Pt on PO Azithromycin. SS will continue to follow for discharge planning.
--- NOTE | 2020-08-17 19:08 | NUR ---
Patients Michael took home green bag with all of patients medications. Patient aware.
[2020-08-17] MEDS: ATORVASTATIN CALCIUM 40 MG TABLET. PO SCH (20:13)
[2020-08-17] MEDS: LACTOBACILLUS RHAMNOSUS GG 1 CAPSULE. PO SCH (20:13)
[2020-08-17] MEDS ORDERED: DOCU100C28 PO (22:17)
[2020-08-18] VITALS (17 sets, daily range): BP systolic 93–119; BP diastolic 57–81
[2020-08-18] MEDS: oxyCODONE/APAP 10/325 1 TAB TABLET PO PRN ×2 (00:06→18:23)
[2020-08-18] MEDS: ONDANSETRON ODT 4 MG TAB.RAPDIS. PO PRN ×2 (04:53→18:22)
[2020-08-18] MEDS: methylPREDNISolone SOD SUCC PF 40 MG/ML VIAL. IV SCH ×2 (04:55→13:23)
[2020-08-18] MEDS: IPRATRPIUM/ALBUTEROL 0.5/2.5MG 3 ML NEBU. NEB SCH ×4 (07:29→20:03)
--- NOTE | 2020-08-18 07:34 | PDOC ---
Infectious Disease Note Subjective Subjective pt is feeling good, on bipap ROS ROS no n/v/d/fever Vital Sign Vital Signs Vital Signs Date Time Temp Pulse Resp B/P (MAP) Pulse Ox O2 Delivery O2 Flow Rate FiO2 08/18/20 07:29 95 VAPOTHERM 40.0 08/18/20 06:00 94 17 118/69 (85) 08/18/20 04:00 98.3 98.3 Physical Exam PHYSICAL EXAM GENERAL: Alert, oriented female, not in distress. VITAL SIGNS: stable HEENT: Both pupils are round and reacting. No conjunctival lesion. No lesion in the mouth. NECK: Supple, no JVP, no lymphadenopathy. LUNGS: Clear. HEART: S1, S2 regular. ABDOMEN: Soft, nontender, no organomegaly. EXTREMITIES: No edema, cyanosis. SKIN: Unremarkable. NEUROLOGIC: The patient is alert, awake, and appropriate. No focal neurologic deficit. Labs Lab Laboratory Tests Test 08/17/20 08:10 Sodium Level 145 mmol/L (136-145) Potassium Level 4.2 mmol/L (3.5-5.1) Chloride Level 108 mmol/L (98-107) Carbon Dioxide Level 25 mmol/L (21-32) Anion Gap 12 (6-14) Blood Urea Nitrogen 22 mg/dL (7-20) Creatinine 0.7 mg/dL (0.6-1.0) Estimated GFR (Cockcroft-Gault) 89.7 Glucose Level 120 mg/dL (70-99) Calcium Level 8.8 mg/dL (8.5-10.1) Micro culture neg Objective Assessment 1. Hypoxic respiratory failure with acute respiratory distress syndrome, etiology of acute respiratory distress syndrome is unclear. Her COVID PCR was negative there. 2. Leukocytosis. 3. History of breast cancer, status post stem cell transplant 20+ years ago. 4. Congestive heart failure. Plan Plan of Care cont supportive care cont antibiotics LANCE JOHNSTON MD Aug 18, 2020 07:34
[2020-08-18] MEDS: ZINC SULFATE 220 MG CAPSULE. PO SCH (08:03)
[2020-08-18] MEDS: SPIRONOLACTONE 25 MG TABLET PO SCH (08:03)
[2020-08-18] MEDS: LACTOBACILLUS RHAMNOSUS GG 1 CAPSULE. PO SCH ×2 (08:04→21:08)
[2020-08-18] MEDS: FERROUS SULFATE 325 MG TABLET. PO SCH (08:04)
[2020-08-18] MEDS: PANTOPRAZOLE 40 MG TABLET.DR. PO SCH (08:04)
[2020-08-18] MEDS: ASPIRIN CHEWABLE 81 MG TABLET. PO SCH (08:04)
[2020-08-18] MEDS: AZITHROMYCIN 250 MG TABLET. PO SCH (08:04)
[2020-08-18] MEDS: GABAPENTIN 300 MG CAPSULE. PO SCH ×2 (08:04→21:08)
[2020-08-18] MEDS: VENLAFAXINE XR 37.5 MG CAP.ER.24H. PO SCH (08:04)
[2020-08-18] MEDS: PREGABALIN 75 MG CAPSULE PO SCH ×2 (08:04→21:09)
[2020-08-18] MEDS: cefTRIAXone IV Push 1 GM VIAL. IVP SCH (08:05)
[2020-08-18] MEDS: diphenhydrAMINE 50 MG/ML VIAL IVP PRN ×2 (09:03→21:09)
--- NOTE | 2020-08-18 09:31 | PN ---
DATE: 08/18/2020 SUBJECTIVE: The patient is resting, slightly propped up in bed, in no apparent distress, awake, alert. Denied any complaint. Nursing staff did not voice any concerns, states she has an uneventful night. PHYSICAL EXAMINATION: GENERAL: When I examined her, she was pale, but no jaundice, cyanosis or thyromegaly. No jugular venous distention. No lower limb edema. VITAL SIGNS: Her heart rate was 94, blood pressure is 118/69, temperature was 98.3, respiratory rate was 17 and oxygen saturation was 95% on Vapotherm on 40 liters of oxygen on FiO2 of 60%. HEAD, EYES, EARS, NOSE AND THROAT: Shows normocephalic, atraumatic. NECK: Supple. HEART: Normal first and second heart sounds, no gallop, rub or murmur. CHEST: Clear to auscultation, no crepitation or rhonchi. ABDOMEN: Soft, nontender, no guarding or rigidity. No organomegaly. All hernial orifice intact. Bowel sounds normal. NEUROLOGIC: She is grossly intact. Her intake and output are incompletely recorded. LABORATORY DATA: As of yesterday showed a serum sodium 145, potassium 4.2, chloride 108, bicarbonate 25, anion gap of 12, BUN 22, creatinine 0.7. Estimated GFR was 89 mL per minute. Her glucose was 120, calcium was 8.8, magnesium was 2.1. Today's labs are still pending at the time of this dictation. ASSESSMENT: 1. Acute on chronic hypoxic respiratory failure. 2. Community-acquired pneumonia. 3. Adult respiratory distress syndrome. 4. Radiation-induced lung injury. 5. Chemotherapy-induced congestive heart failure. 6. Coronary artery disease, status post myocardial infarction. 7. Fibromyalgia. 8. Osteoporosis. 9. Chronic obstructive pulmonary disease. 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 PLAN: To continue IV antibiotic. Continue with steroids and inhaler. The patient is gradually improving. CODI/ANA DR: Giuseppe TID: [id number]
--- NOTE | 2020-08-18 10:14 | PDOC ---
VENICEDANIELVI CarterJaziel Negrete CEPHALOMETRIC ANALYST 08/18/20 1014: CARDIO Progress Notes Date and Time Date of Service 08/18/2020 Time of Evaluation 0950 Subjective Subjective: No Chest Pain, No shortness of breath, No Palpitations Vitals Vitals Vital Signs Date Time Temp Pulse Resp B/P (MAP) Pulse Ox O2 Delivery O2 Flow Rate FiO2 08/18/20 09:45 98 VAPOTHERM 35.0 08/18/20 09:00 98.4 105 17 102/63 (76) 98.4 Weight Weight [ ] Input and Output Intake and Output Intake and Output 08/18/20 07:00 Intake Total 1170 ml Output Total 1275 ml Balance -105 ml Intake Oral 1025 ml IV Total 145 ml Output Urine Total 1275 ml # Voids 1 # Bowel Movements 1 Physical Exam HEENT: Neck Supple W Full Motion Chest: Symmetric LUNGS: Other (diminished) Heart: RRR (SR) Abdomen: Soft N/T Extremities: No Edema, No Calf Tenderness Neurology: alert, oriented, follow commands Assessment Assessment 1. Acute hypoxic respiratory failure with systolic CHF and ARDS with possible pneumonia presently on vapotherm, pulmonary following 2. Acute on chronic systolic CHF: compensated 3. Presumed NICM: EF at 40% 4. Hx of breast CA with prior radiation and chemotherapy and left breast mastectomy 5. Anxiety Recommendations 1. Continue aldactone, start on toprol and note BP trend. BMP and Mg. PO lasix 2. Continue statin, ASA. No further norvasc 3. Consider for outpt ischemic workup. Follow up with Dr. Grajeda her butter fat tester Justicifation of Admission Dx: Justifications for Admission: Justification of Admission Dx: Yes CLARA FATIMA MD 08/18/202: CARDIO Progress Notes Assessment Assessment Patient seen and examined. Agree with OPTICAL SCIENTIST's assessment and plan. Acute resp failure probably secondary to combination of acute on chr systolic HF and pneumonia. Covid negative 2D echo showed LVEF 40%. Agree with adding BB Plan ischemic evaluation as outpatient. Continue diuretics. Pulmonary team following SIXTO SILVA CEPHALOMETRIC ANALYST Aug 18, 2020 10:14 CLARA FATIMA MD Aug 18, 2020 21:02
--- NOTE | 2020-08-18 10:53 | NUR ---
SS following up with discharge planning. SS reviewed pt chart and discussed with pt RN. Pt is currently on Vapotherm. Pt on IV Rocephin and IV Steroids. Pt on PO Azithromycin. SS will continue to follow for discharge planning.
[2020-08-18] MEDS: METOPROLOL SUCC 24HR ER 25 MG TAB.ER.24H. PO SCH (11:16)
--- NOTE | 2020-08-18 11:35 | PDOC ---
PULMONARY PROGRESS NOTES DATE: 08/18/20 TIME: 11:31 Subjective Patient currently on Vapotherm at 40 L flow and FIO2 down to 50% Feels better and denies any increased shortness of breath. Vitals Vital Signs Date Time Temp Pulse Resp B/P (MAP) Pulse Ox O2 Delivery O2 Flow Rate FiO2 08/18/20 11:16 88 112/68 08/18/20 11:00 17 95 Vapotherm 35.0 08/18/20 09:00 98.4 98.4 General: Alert, Oriented X4 Lungs: Crackles Cardiovascular: S1, S2, Other Abdomen: Soft, Non-tender Extremities: No Edema Skin: Warm Labs Laboratory Tests Test 08/16/20 16:20 08/17/20 08:10 Magnesium Level 2.1 mg/dL (1.8-2.4) Sodium Level 145 mmol/L (136-145) Potassium Level 4.2 mmol/L (3.5-5.1) Chloride Level 108 mmol/L (98-107) Carbon Dioxide Level 25 mmol/L (21-32) Anion Gap 12 (6-14) Blood Urea Nitrogen 22 mg/dL (7-20) Creatinine 0.7 mg/dL (0.6-1.0) Estimated GFR (Cockcroft-Gault) 89.7 Glucose Level 120 mg/dL (70-99) Calcium Level 8.8 mg/dL (8.5-10.1) Medications Active Scripts Medications Dose Route/Sig Max Daily Dose Days Date Category Dose Instructions [B12 ] 5,000 Mcg PO DAILY 08/15/20 Reported [vitamin D3-50] 50,000 Units PO WEEKLY 08/15/20 Reported Vitamin D3-50 50,000 units deric on Mondays Iron (Ferrous Sulfate) 325 Mg Tablet 325 Mg PO DAILY 08/15/20 Reported Atorvastatin Calcium 80 Mg Tablet 80 Mg PO QHS 08/15/20 Reported Magnesium Citrate 296 Ml Solution 296 Ml PO DAILY PRN 08/15/20 Reported Zinc 50 Mg Tablet 50 Mg PO DAILY 08/15/20 Reported Spironolactone 25 Mg Tablet 25 Mg PO DAILY 08/15/20 Reported [probiotic daily] 2 Tab PO DAILY 08/15/20 Reported 2 Gummies daily Omeprazole 40 Mg Capsule.dr 40 Mg PO DAILY 08/15/20 Reported Amlodipine Besylate 2.5 Mg Tablet 2.5 Mg PO DAILY 08/15/20 Reported Lyrica (Pregabalin) 75 Mg Capsule 75 Mg PO BID 08/15/20 Reported Ondansetron Hcl 4 Mg Tablet 8 Mg PO Q8HRS PRN 08/15/20 Reported Aspirin 81 Mg Tab.chew 81 Mg PO DAILY 08/15/20 Reported Gabapentin (Gabapentin) 300 Mg Capsule 300 Mg PO BID 08/15/20 Reported Venlafaxine Hcl Er (Venlafaxine Hcl) 75 Mg Cap.er.24h 75 Mg PO DAILY 08/15/20 Reported Ventolin Hfa Inhaler (Albuterol Sulfate) 18 Gm Hfa.aer.ad 2 Puff INH Q4HRS PRN 08/15/20 Reported Percocet 10-325 Mg Tablet (Oxycodone/Acetaminophen) 1 Each Tablet 2 Tab PO PRN Q6HRS PRN 08/15/20 Reported Impression . 1. Acute hypoxic respiratory failure secondary to ARDS and acute lung injury with unknown etiology. She has not received any chemo recently. The possibility of lymphangitic spread seems unlikely. The possibility of interstitial pneumonitis vs acute ILD would also be a consideration. fully vaccinated with COVID, test neg/ ? mild component of CHF 2. No significant history of tobacco use. 3. History of breast cancer, status post stem cell transplant many years ago. 4. Status post chemo and radiation many years ago. No recent chemo. Plan . 1. Continues to improve with steroids/ prn lasix on Vapotherm at 40 L flow. Currently down to 50% FiO2. Oxygen saturations 100%. We will gradually wean FiO2 and keep saturations 92 and above. 2. High dose steroids.start taper 3. Lasix.prn 4. echocardiogram.with EF 40% 5. We will obtain old records. 6. Discussed with Dr. Parada in detail. 7. Continue empiric antibiotics for now. Infectious diseases following. 8. Oral nutrition. 9. Follow-up chest x-ray in 3 to 4 days. 10. f/u wit hme post EUGENE Harman MD Aug 18, 2020 11:35
[2020-08-18] MEDS: NYSTATIN 100,000 UNITS/ML 5 ML ORAL.SUSP. SWSW SCH ×3 (13:23→21:09)
[2020-08-18 13:40] LABS: CALCIUM 8.4 mg/dL (8.5-10.1); CREATININE 0.6 mg/dL (0.6-1.0); GFR 107.2; MAGNESIUM 2.4 mg/dL (1.8-2.4); POTASSIUM 3.5 mmol/L (3.5-5.1)
[2020-08-18] MEDS: ATORVASTATIN CALCIUM 40 MG TABLET. PO SCH (21:08)
[2020-08-19] VITALS (7 sets, daily range): BP systolic 102–129; BP diastolic 61–80
[2020-08-19] MEDS: methylPREDNISolone SOD SUCC PF 40 MG/ML VIAL. IV SCH ×2 (00:20→05:50)
[2020-08-19] MEDS: BENZONATATE 100 MG CAPSULE. PO PRN (03:25)
[2020-08-19 04:05] LABS: HEMATOCRIT 32.4 % (36.0-47.0); HEMOGLOBIN 11.4 g/dL (12.0-15.5); RED BLOOD COUNT 2.94 x10^6/uL (3.50-5.40); RED CELL DISTRIBUTION WIDTH 14.2 % (11.5-14.5); WHITE BLOOD COUNT 11.6 x10^3/uL (4.0-11.0)
[2020-08-19 04:52] LABS: ALBUMIN 2.5 g/dL (3.4-5.0); ALBUMIN/GLOBULIN RATIO 0.7 (1.0-1.7); CALCIUM 8.5 mg/dL (8.5-10.1); CREATININE 0.7 mg/dL (0.6-1.0); GFR 89.7; POTASSIUM 3.9 mmol/L (3.5-5.1); TOTAL BILIRUBIN 0.2 mg/dL (0.2-1.0)
[2020-08-19] MEDS: oxyCODONE/APAP 10/325 1 TAB TABLET PO PRN ×3 (05:49→21:08)
--- NOTE | 2020-08-19 06:07 | PDOC ---
PULMONARY PROGRESS NOTES DATE: 08/19/20 TIME: 06:06 Subjective on 02 3 lpm sob better has occ cough Vitals Vital Signs Date Time Temp Pulse Resp B/P (MAP) Pulse Ox O2 Delivery O2 Flow Rate FiO2 08/19/20 05:49 15 96 Nasal Cannula 3.0 08/19/20 04:00 98.4 102 120/65 (83) 98.4 General: Alert, Oriented X4 Lungs: Crackles Cardiovascular: S1, S2, Other Abdomen: Soft, Non-tender Extremities: No Edema Skin: Warm Labs Laboratory Tests Test 08/17/20 08:10 08/18/20 12:50 08/19/20 03:25 Sodium Level 145 mmol/L (136-145) 144 mmol/L (136-145) 142 mmol/L (136-145) Potassium Level 4.2 mmol/L (3.5-5.1) 3.5 mmol/L (3.5-5.1) 3.9 mmol/L (3.5-5.1) Chloride Level 108 mmol/L (98-107) 105 mmol/L (98-107) 105 mmol/L (98-107) Carbon Dioxide Level 25 mmol/L (21-32) 30 mmol/L (21-32) 31 mmol/L (21-32) Anion Gap 12 (6-14) 9 (6-14) 6 (6-14) Blood Urea Nitrogen 22 mg/dL (7-20) 27 mg/dL (7-20) 18 mg/dL (7-20) Creatinine 0.7 mg/dL (0.6-1.0) 0.6 mg/dL (0.6-1.0) 0.7 mg/dL (0.6-1.0) Estimated GFR (Cockcroft-Gault) 89.7 107.2 89.7 Glucose Level 120 mg/dL (70-99) 125 mg/dL (70-99) 125 mg/dL (70-99) Calcium Level 8.8 mg/dL (8.5-10.1) 8.4 mg/dL (8.5-10.1) 8.5 mg/dL (8.5-10.1) Magnesium Level 2.4 mg/dL (1.8-2.4) White Blood Count 11.6 x10^3/uL (4.0-11.0) Red Blood Count 2.94 x10^6/uL (3.50-5.40) Hemoglobin 11.4 g/dL (12.0-15.5) Hematocrit 32.4 % (36.0-47.0) Mean Corpuscular Volume 110 fL (79-100) Mean Corpuscular Hemoglobin 39 pg (25-35) Mean Corpuscular Hemoglobin Concent 35 g/dL (31-37) Red Cell Distribution Width 14.2 % (11.5-14.5) Platelet Count 288 x10^3/uL (140-400) BUN/Creatinine Ratio 26 (6-20) Total Bilirubin 0.2 mg/dL (0.2-1.0) Aspartate Amino Transf (AST/SGOT) 31 U/L (15-37) Alanine Aminotransferase (ALT/SGPT) 20 U/L (14-59) Alkaline Phosphatase 125 U/L (46-116) Total Protein 6.0 g/dL (6.4-8.2) Albumin 2.5 g/dL (3.4-5.0) Albumin/Globulin Ratio 0.7 (1.0-1.7) Laboratory Tests Test 08/18/20 12:50 08/19/20 03:25 Sodium Level 144 mmol/L (136-145) 142 mmol/L (136-145) Potassium Level 3.5 mmol/L (3.5-5.1) 3.9 mmol/L (3.5-5.1) Chloride Level 105 mmol/L (98-107) 105 mmol/L (98-107) Carbon Dioxide Level 30 mmol/L (21-32) 31 mmol/L (21-32) Anion Gap 9 (6-14) 6 (6-14) Blood Urea Nitrogen 27 mg/dL (7-20) 18 mg/dL (7-20) Creatinine 0.6 mg/dL (0.6-1.0) 0.7 mg/dL (0.6-1.0) Estimated GFR (Cockcroft-Gault) 107.2 89.7 Glucose Level 125 mg/dL (70-99) 125 mg/dL (70-99) Calcium Level 8.4 mg/dL (8.5-10.1) 8.5 mg/dL (8.5-10.1) Magnesium Level 2.4 mg/dL (1.8-2.4) White Blood Count 11.6 x10^3/uL (4.0-11.0) Red Blood Count 2.94 x10^6/uL (3.50-5.40) Hemoglobin 11.4 g/dL (12.0-15.5) Hematocrit 32.4 % (36.0-47.0) Mean Corpuscular Volume 110 fL (79-100) Mean Corpuscular Hemoglobin 39 pg (25-35) Mean Corpuscular Hemoglobin Concent 35 g/dL (31-37) Red Cell Distribution Width 14.2 % (11.5-14.5) Platelet Count 288 x10^3/uL (140-400) BUN/Creatinine Ratio 26 (6-20) Total Bilirubin 0.2 mg/dL (0.2-1.0) Aspartate Amino Transf (AST/SGOT) 31 U/L (15-37) Alanine Aminotransferase (ALT/SGPT) 20 U/L (14-59) Alkaline Phosphatase 125 U/L (46-116) Total Protein 6.0 g/dL (6.4-8.2) Albumin 2.5 g/dL (3.4-5.0) Albumin/Globulin Ratio 0.7 (1.0-1.7) Medications Active Scripts Medications Dose Route/Sig Max Daily Dose Days Date Category Dose Instructions [B12 ] 5,000 Mcg PO DAILY 08/15/20 Reported [vitamin D3-50] 50,000 Units PO WEEKLY 08/15/20 Reported Vitamin D3-50 50,000 units mondays Iron (Ferrous Sulfate) 325 Mg Tablet 325 Mg PO DAILY 08/15/20 Reported Atorvastatin Calcium 80 Mg Tablet 80 Mg PO QHS 08/15/20 Reported Magnesium Citrate 296 Ml Solution 296 Ml PO DAILY PRN 08/15/20 Reported Zinc 50 Mg Tablet 50 Mg PO DAILY 08/15/20 Reported Spironolactone 25 Mg Tablet 25 Mg PO DAILY 08/15/20 Reported [probiotic daily] 2 Tab PO DAILY 08/15/20 Reported 2 Gummies daily Omeprazole 40 Mg Capsule.dr 40 Mg PO DAILY 08/15/20 Reported Amlodipine Besylate 2.5 Mg Tablet 2.5 Mg PO DAILY 08/15/20 Reported Lyrica (Pregabalin) 75 Mg Capsule 75 Mg PO BID 08/15/20 Reported Ondansetron Hcl 4 Mg Tablet 8 Mg PO Q8HRS PRN 08/15/20 Reported Aspirin 81 Mg Tab.chew 81 Mg PO DAILY 08/15/20 Reported Gabapentin (Gabapentin) 300 Mg Capsule 300 Mg PO BID 08/15/20 Reported Venlafaxine Hcl Er (Venlafaxine Hcl) 75 Mg Cap.er.24h 75 Mg PO DAILY 08/15/20 Reported Ventolin Hfa Inhaler (Albuterol Sulfate) 18 Gm Hfa.aer.ad 2 Puff INH Q4HRS PRN 08/15/20 Reported Percocet 10-325 Mg Tablet (Oxycodone/Acetaminophen) 1 Each Tablet 2 Tab PO PRN Q6HRS PRN 08/15/20 Reported Impression . 1. Acute hypoxic respiratory failure secondary to ARDS and acute lung injury with unknown etiology. She has not received any chemo recently. The possibility of lymphangitic spread seems unlikely. The possibility of interstitial pneumonitis vs acute ILD would also be a consideration. fully vaccinated with COVID, test neg/ mild component of acute sys CHF 2. No significant history of tobacco use. 3. History of breast cancer, status post stem cell transplant many years ago. 4. Status post chemo and radiation many years ago. No recent chemo. Plan . 1. Continues to improve with steroids/ prn lasix titrate FiO2 and keep saturations 92%. on 02 3 lpm 2. change solumedrol to bid 3. Lasix.prn monitor k, cr 4. echocardiogram.with EF 40% 5. We will obtain old records. 6. Follow-up chest x-ray on friday 7. Continue empiric antibiotics for now. Infectious diseases following. 8. Oral nutrition. 9. f/u wit heme post dc COLE MATOS MD Aug 19, 2020 06:07
[2020-08-19] MEDS: IPRATRPIUM/ALBUTEROL 0.5/2.5MG 3 ML NEBU. NEB SCH ×4 (07:54→20:17)
--- NOTE | 2020-08-19 08:20 | PDOC ---
Infectious Disease Note Subjective Subjective pt is feeling good, ON 2.5 LIT OF O2/ ROS ROS no n/v/d/ Vital Sign Vital Signs Vital Signs Date Time Temp Pulse Resp B/P (MAP) Pulse Ox O2 Delivery O2 Flow Rate FiO2 08/19/20 08:02 Nasal Cannula 2.5 08/19/20 07:55 96 08/19/20 07:30 98.5 90 20 129/80 (96) 98.5 Physical Exam PHYSICAL EXAM GENERAL: Alert, oriented female, not in distress. VITAL SIGNS: stable HEENT: Both pupils are round and reacting. No conjunctival lesion. No lesion in the mouth. NECK: Supple, no JVP, no lymphadenopathy. LUNGS: Clear. HEART: S1, S2 regular. ABDOMEN: Soft, nontender, no organomegaly. EXTREMITIES: No edema, cyanosis. SKIN: Unremarkable. NEUROLOGIC: The patient is alert, awake, and appropriate. No focal neurologic deficit. Labs Lab Laboratory Tests Test 08/18/20 12:50 08/19/20 03:25 Sodium Level 144 mmol/L (136-145) 142 mmol/L (136-145) Potassium Level 3.5 mmol/L (3.5-5.1) 3.9 mmol/L (3.5-5.1) Chloride Level 105 mmol/L (98-107) 105 mmol/L (98-107) Carbon Dioxide Level 30 mmol/L (21-32) 31 mmol/L (21-32) Anion Gap 9 (6-14) 6 (6-14) Blood Urea Nitrogen 27 mg/dL (7-20) 18 mg/dL (7-20) Creatinine 0.6 mg/dL (0.6-1.0) 0.7 mg/dL (0.6-1.0) Estimated GFR (Cockcroft-Gault) 107.2 89.7 Glucose Level 125 mg/dL (70-99) 125 mg/dL (70-99) Calcium Level 8.4 mg/dL (8.5-10.1) 8.5 mg/dL (8.5-10.1) Magnesium Level 2.4 mg/dL (1.8-2.4) White Blood Count 11.6 x10^3/uL (4.0-11.0) Red Blood Count 2.94 x10^6/uL (3.50-5.40) Hemoglobin 11.4 g/dL (12.0-15.5) Hematocrit 32.4 % (36.0-47.0) Mean Corpuscular Volume 110 fL (79-100) Mean Corpuscular Hemoglobin 39 pg (25-35) Mean Corpuscular Hemoglobin Concent 35 g/dL (31-37) Red Cell Distribution Width 14.2 % (11.5-14.5) Platelet Count 288 x10^3/uL (140-400) BUN/Creatinine Ratio 26 (6-20) Total Bilirubin 0.2 mg/dL (0.2-1.0) Aspartate Amino Transf (AST/SGOT) 31 U/L (15-37) Alanine Aminotransferase (ALT/SGPT) 20 U/L (14-59) Alkaline Phosphatase 125 U/L (46-116) Total Protein 6.0 g/dL (6.4-8.2) Albumin 2.5 g/dL (3.4-5.0) Albumin/Globulin Ratio 0.7 (1.0-1.7) Micro culture neg Objective Assessment 1. Hypoxic respiratory failure with acute respiratory distress syndrome, etiology of acute respiratory distress syndrome is unclear. Her COVID PCR was negative there. 2. Leukocytosis. 3. History of breast cancer, status post stem cell transplant 20+ years ago. 4. Congestive heart failure. Plan Plan of Care cont supportive care cont antibiotics LANCE JOHNSTON MD Aug 19, 2020 08:20
[2020-08-19] MEDS: PREGABALIN 75 MG CAPSULE PO SCH ×2 (08:23→20:58)
[2020-08-19] MEDS: METOPROLOL SUCC 24HR ER 25 MG TAB.ER.24H. PO SCH (08:23)
[2020-08-19] MEDS: NYSTATIN 100,000 UNITS/ML 5 ML ORAL.SUSP. SWSW SCH ×4 (08:23→20:56)
[2020-08-19] MEDS: VENLAFAXINE XR 37.5 MG CAP.ER.24H. PO SCH (08:23)
[2020-08-19] MEDS: AZITHROMYCIN 250 MG TABLET. PO SCH (08:23)
[2020-08-19] MEDS: ASPIRIN CHEWABLE 81 MG TABLET. PO SCH (08:24)
[2020-08-19] MEDS: GABAPENTIN 300 MG CAPSULE. PO SCH ×2 (08:24→20:57)
[2020-08-19] MEDS: ZINC SULFATE 220 MG CAPSULE. PO SCH (08:24)
[2020-08-19] MEDS: PANTOPRAZOLE 40 MG TABLET.DR. PO SCH (08:24)
[2020-08-19] MEDS: cefTRIAXone IV Push 1 GM VIAL. IVP SCH (08:24)
[2020-08-19] MEDS: FERROUS SULFATE 325 MG TABLET. PO SCH (08:24)
[2020-08-19] MEDS: LACTOBACILLUS RHAMNOSUS GG 1 CAPSULE. PO SCH ×2 (08:24→20:58)
[2020-08-19] MEDS: SPIRONOLACTONE 25 MG TABLET PO SCH (08:24)
--- NOTE | 2020-08-19 08:35 | PN ---
DATE: 08/19/2020 SUBJECTIVE: The patient is resting, slightly propped up in bed, in no apparent respiratory distress. She is awake, alert. She is off the ventilator and she is down on 2-1/2 liters of oxygen, maintaining her oxygen saturation at 95%. PHYSICAL EXAMINATION: GENERAL: When I examined her, she looked well, slightly pale, but no jaundice, cyanosis, no lymphadenopathy, no thyromegaly, no jugular venous distention. No lower limb edema. VITAL SIGNS: Her heart rate was 90, blood pressure was 129/80, temperature was 98.5, respiratory rate was 20 and oxygen saturation was 95% on 2-1/2 liters of oxygen. HEAD, EYES, EARS, NOSE, AND THROAT: Normocephalic, atraumatic. NECK: Supple. HEART: Showed normal first and second heart sounds, no gallop, rub or murmur. CHEST: Clear to auscultation, no crepitation or rhonchi. ABDOMEN: Distended, soft, nontender. NEUROLOGIC: She is awake, alert, responding appropriately. All cranial nerves intact. She moves extremities without difficulty. She ambulates without assistance or assistive devices. Her intake was 1150, output was 1275. LABORATORY DATA: Her lab work this morning showed a white cell count 11,600, hemoglobin 11, hematocrit 32, MCV 110, and platelet count 288,000. Serum sodium 142, potassium 3.9, chloride 105, bicarbonate 31, anion gap of 6, BUN 18, creatinine 0.7. Estimated GFR was 89 mL per minute. His glucose was 125, calcium was 8.5. Total bilirubin, AST, ALT were normal. Alkaline phosphatase slightly elevated. Total protein 6, albumin was 2.5. ASSESSMENT: 1. Acute on chronic hypoxic respiratory failure, improving. Her oxygen requirement is now down to 2.5 liters of oxygen by nasal cannula. 2. Community-acquired pneumonia. 3. Adult respiratory distress syndrome. 4. Radiation-induced lung injury. 5. Chemotherapy induced congestive heart failure. 6. Coronary artery disease status post myocardial infarction. 7. Fibromyalgia. 8. Osteoporosis. 9. Chronic obstructive pulmonary disease. 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 PLAN: To continue with IV Solu-Medrol. Continue with IV antibiotic. Continue with DVT and GI prophylaxis. The patient's oxygen requirement has dramatically improved, the patient can be transferred to the floor. We will taper down her steroids, she is now on 40 mg IV twice a day. Hopefully, she will be discharged on oral steroids. DOROTHEA DR: Giuseppe TID: [id number]
[2020-08-19] MEDS: ATORVASTATIN CALCIUM 40 MG TABLET. PO SCH (20:57)
[2020-08-19] MEDS ORDERED: methylPREDNISolone SOD SUCC PF 40 MG/ML VIAL. IV SCH (21:00)
[2020-08-19] MEDS: ONDANSETRON ODT 4 MG TAB.RAPDIS. PO PRN (21:07)
[2020-08-20 03:00] VITALS: BP 117/71
--- NOTE | 2020-08-20 06:19 | PDOC ---
PULMONARY PROGRESS NOTES DATE: 08/20/20 TIME: 06:18 Subjective on 02 3 lpm feel much better sob better has occ cough Vitals Vital Signs Date Time Temp Pulse Resp B/P (MAP) Pulse Ox O2 Delivery O2 Flow Rate FiO2 08/20/20 03:00 98.2 70 18 117/71 (86) 97 Nasal Cannula 3.0 98.2 General: Alert, Oriented X4 Lungs: Crackles Cardiovascular: S1, S2, Other Abdomen: Soft, Non-tender Extremities: No Edema Skin: Warm Labs Laboratory Tests Test 08/18/20 12:50 08/19/20 03:25 Sodium Level 144 mmol/L (136-145) 142 mmol/L (136-145) Potassium Level 3.5 mmol/L (3.5-5.1) 3.9 mmol/L (3.5-5.1) Chloride Level 105 mmol/L (98-107) 105 mmol/L (98-107) Carbon Dioxide Level 30 mmol/L (21-32) 31 mmol/L (21-32) Anion Gap 9 (6-14) 6 (6-14) Blood Urea Nitrogen 27 mg/dL (7-20) 18 mg/dL (7-20) Creatinine 0.6 mg/dL (0.6-1.0) 0.7 mg/dL (0.6-1.0) Estimated GFR (Cockcroft-Gault) 107.2 89.7 Glucose Level 125 mg/dL (70-99) 125 mg/dL (70-99) Calcium Level 8.4 mg/dL (8.5-10.1) 8.5 mg/dL (8.5-10.1) Magnesium Level 2.4 mg/dL (1.8-2.4) White Blood Count 11.6 x10^3/uL (4.0-11.0) Red Blood Count 2.94 x10^6/uL (3.50-5.40) Hemoglobin 11.4 g/dL (12.0-15.5) Hematocrit 32.4 % (36.0-47.0) Mean Corpuscular Volume 110 fL (79-100) Mean Corpuscular Hemoglobin 39 pg (25-35) Mean Corpuscular Hemoglobin Concent 35 g/dL (31-37) Red Cell Distribution Width 14.2 % (11.5-14.5) Platelet Count 288 x10^3/uL (140-400) BUN/Creatinine Ratio 26 (6-20) Total Bilirubin 0.2 mg/dL (0.2-1.0) Aspartate Amino Transf (AST/SGOT) 31 U/L (15-37) Alanine Aminotransferase (ALT/SGPT) 20 U/L (14-59) Alkaline Phosphatase 125 U/L (46-116) Total Protein 6.0 g/dL (6.4-8.2) Albumin 2.5 g/dL (3.4-5.0) Albumin/Globulin Ratio 0.7 (1.0-1.7) Medications Active Scripts Medications Dose Route/Sig Max Daily Dose Days Date Category Dose Instructions [B12 ] 5,000 Mcg PO DAILY 08/15/20 Reported [vitamin D3-50] 50,000 Units PO WEEKLY 08/15/20 Reported Vitamin D3-50 50,000 units deric on Mondays Iron (Ferrous Sulfate) 325 Mg Tablet 325 Mg PO DAILY 08/15/20 Reported Atorvastatin Calcium 80 Mg Tablet 80 Mg PO QHS 08/15/20 Reported Magnesium Citrate 296 Ml Solution 296 Ml PO DAILY PRN 08/15/20 Reported Zinc 50 Mg Tablet 50 Mg PO DAILY 08/15/20 Reported Spironolactone 25 Mg Tablet 25 Mg PO DAILY 08/15/20 Reported [probiotic daily] 2 Tab PO DAILY 08/15/20 Reported 2 Gummies daily Omeprazole 40 Mg Capsule.dr 40 Mg PO DAILY 08/15/20 Reported Amlodipine Besylate 2.5 Mg Tablet 2.5 Mg PO DAILY 08/15/20 Reported Lyrica (Pregabalin) 75 Mg Capsule 75 Mg PO BID 08/15/20 Reported Ondansetron Hcl 4 Mg Tablet 8 Mg PO Q8HRS PRN 08/15/20 Reported Aspirin 81 Mg Tab.chew 81 Mg PO DAILY 08/15/20 Reported Gabapentin (Gabapentin) 300 Mg Capsule 300 Mg PO BID 08/15/20 Reported Venlafaxine Hcl Er (Venlafaxine Hcl) 75 Mg Cap.er.24h 75 Mg PO DAILY 08/15/20 Reported Ventolin Hfa Inhaler (Albuterol Sulfate) 18 Gm Hfa.aer.ad 2 Puff INH Q4HRS PRN 08/15/20 Reported Percocet 10-325 Mg Tablet (Oxycodone/Acetaminophen) 1 Each Tablet 2 Tab PO PRN Q6HRS PRN 08/15/20 Reported Impression . 1. Acute hypoxic respiratory failure secondary to ARDS and acute lung injury with unknown etiology. She has not received any chemo recently. The possibility of lymphangitic spread seems unlikely. The possibility of interstitial pneumonitis vs acute ILD would also be a consideration. fully vaccinated with COVID, test neg/ mild component of acute sys CHF 2. No significant history of tobacco use. 3. History of breast cancer, status post stem cell transplant many years ago. 4. Status post chemo and radiation many years ago. No recent chemo. Plan . updated 08/20 1. titrate FiO2 and keep saturations 92%. on 02 3 lpm 6 min walk at dc 2. change solumedrol to prednisone 40 mg daily w taper by 10 mg q 3d 3. Lasix.prn monitor k, cr 4. echocardiogram.with EF 40% 5. We will obtain old records. 6. f/u wit heme post dc 7. Continue empiric antibiotics for now. Infectious diseases following. 8. Oral nutrition. discussed w pt rn COLE Tena MD Aug 20, 2020 06:19
[2020-08-20] MEDS: PANTOPRAZOLE 40 MG TABLET.DR. PO SCH (06:58)
[2020-08-20] MEDS: FERROUS SULFATE 325 MG TABLET. PO SCH (08:38)
[2020-08-20] MEDS: ZINC SULFATE 220 MG CAPSULE. PO SCH (08:38)
[2020-08-20] MEDS: VENLAFAXINE XR 37.5 MG CAP.ER.24H. PO SCH (08:38)
[2020-08-20] MEDS: ASPIRIN CHEWABLE 81 MG TABLET. PO SCH (08:39)
[2020-08-20] MEDS: GABAPENTIN 300 MG CAPSULE. PO SCH (08:39)
[2020-08-20] MEDS: SPIRONOLACTONE 25 MG TABLET PO SCH (08:39)
[2020-08-20] MEDS: PREGABALIN 75 MG CAPSULE PO SCH (08:39)
[2020-08-20] MEDS: AZITHROMYCIN 250 MG TABLET. PO SCH (08:40)
[2020-08-20] MEDS: LACTOBACILLUS RHAMNOSUS GG 1 CAPSULE. PO SCH (08:40)
[2020-08-20] MEDS: oxyCODONE/APAP 10/325 1 TAB TABLET PO PRN (08:44)
[2020-08-20] MEDS: IPRATRPIUM/ALBUTEROL 0.5/2.5MG 3 ML NEBU. NEB SCH (08:52)
[2020-08-20] MEDS: NYSTATIN 100,000 UNITS/ML 5 ML ORAL.SUSP. SWSW SCH (09:00)
[2020-08-20] MEDS: METOPROLOL SUCC 24HR ER 25 MG TAB.ER.24H. PO SCH (09:00)
[2020-08-20] MEDS ORDERED: predniSONE 20 MG TABLET PO SCH (09:00)
--- NOTE | 2020-08-20 09:12 | PDOC ---
Infectious Disease Note Subjective Subjective pt is feeling good, ROS ROS no n/v/d/ Vital Sign Vital Signs Vital Signs Date Time Temp Pulse Resp B/P (MAP) Pulse Ox O2 Delivery O2 Flow Rate FiO2 08/20/20 08:52 95 Nasal Cannula 2.0 08/20/20 07:00 68 18 08/20/20 03:00 98.2 98.2 Physical Exam PHYSICAL EXAM GENERAL: Alert, oriented female, not in distress. VITAL SIGNS: stable HEENT: Both pupils are round and reacting. No conjunctival lesion. No lesion in the mouth. NECK: Supple, no JVP, no lymphadenopathy. LUNGS: Clear. HEART: S1, S2 regular. ABDOMEN: Soft, nontender, no organomegaly. EXTREMITIES: No edema, cyanosis. SKIN: Unremarkable. NEUROLOGIC: The patient is alert, awake, and appropriate. No focal neurologic deficit. Labs Micro culture neg Objective Assessment 1. Hypoxic respiratory failure with acute respiratory distress syndrome, etiology of acute respiratory distress syndrome is unclear. Her COVID PCR was negative there. 2. Leukocytosis. 3. History of breast cancer, status post stem cell transplant 20+ years ago. 4. Congestive heart failure. Plan Plan of Care cont supportive care cont antibiotics LANCE JOHNSTON MD Aug 20, 2020 09:12
[2020-08-20] MEDS: cefTRIAXone IV Push 1 GM VIAL. IVP SCH (10:00)
[2020-08-20] MEDS ORDERED: CEFD300C PO (10:42)
[2020-08-20] MEDS ORDERED: METO25TA4 PO (10:42)
--- NOTE | 2020-09-17 10:22 | DS ---
DATE OF DISCHARGE: 08/20/2020 HOSPITAL COURSE: The patient is a 49-year-old female patient who presented to the Emergency Room of [facility] with a complaint of cough, shortness of breath that has been going on for almost 3-4 days. The cough is mostly dry. She does have some chest pain when she takes a deep breath that seems to be pleuritic in nature, mostly on the left side. She is normally on 2 liters of oxygen at home, but she has increased her oxygen to 5 liters and despite this, she has continued to be at shortness of breath and chest tightness and wheezing. She was evaluated in the Emergency Room of [facility], has had lab work and imaging studies. Her lab work showed that she has leukocytosis with a white cell count of 114,000. Her blood gases showed a pH of 7.30, pCO2 of 48, pO2 of 74, bicarbonate 24 and oxygen saturation was 93% on FiO2 of 36%. Her D-dimer was slightly high at 1.02. Her chemistry showed that her beta natriuretic peptide slightly high at 1628. However, her urinalysis was unremarkable. Given the elevated D-dimer, she underwent CT angio of the chest which showed that there is no evidence of pulmonary emboli identified within the main lobar or segmental pulmonary arteries; however, she has extensive patchy bilateral airspace disease that may represent infection, inflammatory process versus edema. The patient was therefore treated with IV antibiotic in the form of ceftriaxone and Zithromax. She was also started on BiPAP machine and was transferred to [facility] for further evaluation and treatment. She was seen in consultation by the Cardiology team as well as the Infectious Disease and she was transferred to ICU. She was clearly in acute on chronic respiratory distress with ARDS and possible pneumonia, possible diastolic congestive heart failure. She was treated with IV Lasix, IV antibiotic and BiPAP machine and did actually extremely well, such that she was back on her 2 liters of oxygen, maintaining her oxygen saturation of 95%. The decision was made to discharge her home. PHYSICAL EXAMINATION: GENERAL: On the day of discharge, she looked well and was clearly in no apparent respiratory distress. No pallor, jaundice, cyanosis or thyromegaly. No jugular venous distention. No lower limb edema. VITAL SIGNS: Her heart rate was 68, blood pressure was 117/71, her temperature was 98.2, respiratory rate was 18 and oxygen saturation was 95% on 2 liters of oxygen. HEAD, EYES, EARS, NOSE, AND THROAT: Showed normocephalic, atraumatic. NECK: Supple. HEART: Showed normal first and second heart sounds. No gallop, rub or murmur. CHEST: Clear to auscultation. No crepitation or rhonchi. ABDOMEN: Distended, soft. NEUROLOGIC: She was grossly intact. LABORATORY DATA: Her lab work on the day of discharge showed a white cell count 11,600; hemoglobin 11; hematocrit 32; MCV 110 and platelet count of 288,000. Her chemistry showed a serum sodium 142, potassium 3.9, chloride 105, bicarbonate 31, anion gap of 6, BUN 18, creatinine 0.7. Her estimated GFR was 89 mL per minute, glucose 126, calcium was 8.5. Total bilirubin, AST, ALT were normal. Alkaline phosphatase high. DISCHARGE MEDICATIONS: The patient was discharged home to continue on cefdinir 300 mg twice a day for 5 more days, metoprolol 12.5 mg twice a day, albuterol sulfate 2 puffs every 4 hours as needed, aspirin 81 mg once a day, atorvastatin 80 mg at bedtime, Colace 100 mg twice a day, ferrous sulfate 325 mg daily, gabapentin 300 mg twice a day, magnesium citrate 1 bottle daily p.r.n. for constipation, omeprazole 40 mg daily, ondansetron 8 mg every 8 hours, oxycodone/APAP 10/325 one tablet every 6 hours, pregabalin for Lyrica 75 mg twice a day, spironolactone 25 mg daily, venlafaxine 75 mg once a day, and zinc sulfate 50 mg daily. FINAL DISCHARGE DIAGNOSES: 1. Acute on chronic hypoxic respiratory failure, improving. Her oxygen requirement is down to 2.5 liters of oxygen by nasal cannula. 2. Community-acquired pneumonia. 3. Adult respiratory distress syndrome. 4. Radiation-induced lung injury. 5. Chemotherapy-induced congestive heart failure. 6. Congestive heart disease, status post myocardial infarction. 7. Fibromyalgia. 8. Osteoporosis. 9. Osteoarthritis. 10. Chronic obstructive pulmonary disease. 11. Premature ovarian failure. DOROTHEA/TALISHA DR: Giuseppe TID: [id number]
== END 2020-08-20 11:45 | disposition home or self-care (01) | DRG 291 ==
LOC: 2 SOUTH 21:30 → 1 WEST ICU 08-16 10:18
PROVIDERS: ADMIT Internal Medicine; ATTEND Internal Medicine
PROC: 5A09357 Assistance with Respiratory Ventilation, Less than 24 Consecutive Hours, Continuous Positive Airway Pressure (ICD-10-PCS; principal; 2020-08-15)
PROC: 5A0935A Assistance with Respiratory Ventilation, Less than 24 Consecutive Hours, High Flow/Velocity Cannula (ICD-10-PCS; 2020-08-16)
PROC: 5A09357 Assistance with Respiratory Ventilation, Less than 24 Consecutive Hours, Continuous Positive Airway Pressure (ICD-10-PCS; 2020-08-17)
DX: I50.43 Acute on chronic combined systolic (congestive) and diastolic (congestive) heart failure (principal); J18.9 Pneumonia, unspecified organism; J96.21 Acute and chronic respiratory failure with hypoxia; J44.0 Chronic obstructive pulmonary disease with (acute) lower respiratory infection; Z94.84 Stem cells transplant status; I42.8 Other cardiomyopathies; I25.10 Atherosclerotic heart disease of native coronary artery without angina pectoris; K21.9 Gastro-esophageal reflux disease without esophagitis; M81.0 Age-related osteoporosis without current pathological fracture; M79.7 Fibromyalgia; E28.39 Other primary ovarian failure; E78.5 Hyperlipidemia, unspecified; F31.9 Bipolar disorder, unspecified; G62.9 Polyneuropathy, unspecified; J84.10 Pulmonary fibrosis, unspecified; F41.9 Anxiety disorder, unspecified; Z20.822 Contact with and (suspected) exposure to COVID-19; T45.1X5A Adverse effect of antineoplastic and immunosuppressive drugs, initial encounter; Y82.9 Unspecified medical devices associated with adverse incidents; Y84.2 Radiological procedure and radiotherapy as the cause of abnormal reaction of the patient, or of later complication, without mention of misadventure at the time of the procedure; I25.2 Old myocardial infarction; Z92.3 Personal history of irradiation; Z92.21 Personal history of antineoplastic chemotherapy; Z85.3 Personal history of malignant neoplasm of breast; Z86.14 Personal history of Methicillin resistant Staphylococcus aureus infection; Y92.89 Other specified places as the place of occurrence of the external cause; Z90.12 Acquired absence of left breast and nipple; Z88.0 Allergy status to penicillin; Z88.5 Allergy status to narcotic agent; Z88.8 Allergy status to other drugs, medicaments and biological substances; Z82.5 Family history of asthma and other chronic lower respiratory diseases; Z82.49 Family history of ischemic heart disease and other diseases of the circulatory system
CPT/HCPCS: 36415; 36600; 71045; 80048; 80053; 82805; 83735; 85027; 93306; 94618; 94640; 94660; 94760; J0696; J1200; J1940; J2920; J3486; J3490; J7512; C8929; G0378; J7613